=== PATIENT | male | born 1995 | race Hispanic/Latino ===

== ENCOUNTER → 2018-09-22 | Day surgery (SDC) | payer OTHER ==
[~2018-09-22] MED LIST: ACETAMINOPHEN 1000 MG/100 ML IV ONE; BUPIVACAINE 0.25% 30ML SDV INJ ONE; BUPIVACAINE 0.5%/EPI 30 ML SDV INJ ONE; CEFAZOLIN SOD 2 GM/D5W 50ML 50 ML IV ONE; DEXAMETHASONE SOD PHOS INJ 4 MG/ML VIAL ONE; FENTANYL CITRATE/PF 100MCG/2 ML INJ ONE; FLUCONAZOLE 200 MG/100 ML 100 ML IV ONE; HYDROCODONE/APAP 5MG-325MG TAB ONE; KETOROLAC TROMETHAMINE 30 MG/ML VIAL ONE; LIDOCAINE HCL 2% LOCAL 20 ML VIAL ONE; MIDAZOLAM HCL 2 MG/2 ML VIAL ONE; MORPHINE SULFATE INJ 10 MG/ML ONE; ONDANSETRON HCL INJ 2MG/ML 2ML 2 MG/ML VIAL ONE; PROPOFOL IV EMULSION 10 MG/ML 20 ML VIAL ONE; ROPIVACAINE 0.5% 5 MG/ML 30 ML SDV ONE
[2018-09-22 13:45] VITALS: BP 130/85
--- NOTE | 2018-09-22 20:14 | NUR ---
OPERATIVE NOTE - ORTHOPEDICS Date: 09/22/18 Procedure(s): Right Knee ACL Reconstruction with Patella Bone Tendon Bone Autograft, Medial Meniscus Repair with Fibrin Clot Pre-Op Dx: Right Knee ACL Tear, Medial Meniscus Tear Post-Op Dx: Right Knee ACL Tear, Medial Meniscus Tear Anesthesia Type: General, Block Surgeon: Ese Chris DO Clinical History: 23 year old male with right knee pain and instability after a mechanical fall Findings: Right Knee ACL Tear, Medial Meniscus Tear Implants: [employer] Regenesorb Screws 8 x 20 mm (Tibial), 9 x 20 mm (Femoral). [employer] 2-0 Ultrabraid Suture Complications: None Procedure Summary The patient had an adductor femoral block in the pre-op area. The patient was brought into the operating room and transferred over to the operating room bed. The patient was given general anesthesia and successfully intubated. The patient had all bony prominences well-padded and was positioned in the supin e position with the right side being prepped and draped in standard sterile fashion. The non-operative leg was placed in a well leg trejo with all bony prominences well padded. The patient was given 2 grams of Ancef, and a time out was verified for the extremity and procedure. At that point, local anesthesia was placed in the possible portal sites and graft sites. An incision was made over the patellar tendon with careful dissection through the skin and subcutaneous tissue until the paratenon was visu alized medially and laterally superiorly and inferiorly to the tubercle. A small incision was made through the sheath and the tendon was visualized medially and laterally. The central one centimeter of the tendon was demarcated and was cut distally and proximally. Through the use of a saw, the tibial bone plug was removed and then focus on the patellar bone plug was made. The graft was then prepped so the femoral side fit through a 10 hole and the tibial side through an 10 due to the robust size of the tendon insertion. The graft was then wrapped in an saline and antibiotic soaked gauze. The anterolateral portal was made, and entrance into the patellofemoral compartment was performed. Immediately of note, it was noted that the patient was free of significant chondromalacia, however there was significant synovitis. The lateral and medial gutters were evaluated demonstrating no loose bodies or abnormalities At that point, our attention was turned into the medial compartment. A small low anteromedial incision was made for the portal. The anterior horn, middle horn, and posterior horn of the medial meniscus was intact and probed with notin g meniscus had a 1.5 cm undersided tear of the posterior horn. Through the use of a [employer] Meniscal Instrumentation, a suture was placed in the middle of the tear, stabilizing the tear. The articular surfaces were noted to be pristine. We focused our attention to the intercondylar notch. The PCL were intact. The ACL was noted to be ruptured centrally. At that point, the lateral compartment was entered and the anterior, and posterior horn of the lateral meniscus was noted to be intact.. The lateral tib ial plateau was noted to have no chondromalacia. Using the anteromedial portal, debridement with the arthroscopic shaver, arthroscopic bovie, and joni were used to remove the ACL stump and prepare the notch for the new graft. A notchplasty was performed as well and the posterior aspect of the lateral femoral condyle was well noted. A punch was used to demarcate the center of the femoral socket. This marking was verified from visualization from the medial side to ensure adequate position to avoid back wall blowout and vertical tunnel placement. The pin was placed and secured on the lateral side of the femur. The femur was prepared as well with the reamed with an 10 mm low profile reamer to 25 mm in depth. An ethibond stitch was used as a passing stitch and the pin was extracted leaving t he stitch in its place. The bone reamings removed. The tibial tunnel was made with the [employer] guide set at 55 degrees and reamed to a size 10. After all preparation was performed, the graft was passed and secured on the femoral side with an [employer] Regenesorb 9 x 20mm Biocomposite Screw. The graft was visualized inside arthroscopy and found not to impinge and had excellent position. The tibial fixation followed with another [employer] Regenesorb 8 x 20 mm Biocomposite Screw. Pictures were taken to demonstrate no intraarticular penetration of the screw within the joint and then within the tibial tunnel demonstrating adequate screw fixation against the graft. A spinal needle was placed into the area underneath the meniscus tear, and a autologous fibrin clot was introduced to augment healing. The Sunshine was performed after total fixation and demonstrated no instability with sunshine testing. At that point the arthroscopy was terminated and the bone graft from the plugs and tibial tubercle were placed within the patellar site. The tendon was loosely approximated and the sheath was closed with vicryl in a running suture fashion. The incisions were closed with 2.0 Vicry., 3.0 Monocryl, and steri-stri ps and xeroform. 4x4 gauze, abd pad were placed with the hernán bandage. The patie nt was placed in leg extension in brace awoken from general anesthesia, successfully extubated, and taken to the recovery room in stable condition. All the needles, lap and sponge counts were correct at the end of the case. Post Op Condition: Stable Post Op Plan: Home with follow up in 2 weeks. Physical Therapy with Meniscus Repair Protocol
== END | disposition home or self-care (01) ==
LOC: OR 06:33
PROVIDERS: ATTEND Orthopaedic Surgery
DX: S83.281A Other tear of lateral meniscus, current injury, right knee, initial encounter (principal); S83.241A Other tear of medial meniscus, current injury, right knee, initial encounter
CPT/HCPCS: 29882; 29888; 29999; J0131; J0690; J1100; J1450; J1885; J2001; J2250; J2270; J2405; J2704; J2795; C1713